=== PATIENT | male | born 1950 | race Caucasian/White ===

== ENCOUNTER 2017-02-11 08:00 | Outpatient (RCR) | payer OTHER ==
[2017-02-06 14:29] LABS: PLATELET COUNT, AUTOMATED 253 K/uL (150-450)
[~2017-02-11 08:00] MED LIST: ASPI-1471 PO; AZIT-1 PO; CEP500 PO; DILT180C2 PO; GLUC100026 PO; IOPAMIDOL 76% 75 ML INFUS BTL 75 ML ONE; METH4TAB66 PO; MULT1TAB54 PO; NS 0.9% 50 ML VIAL 50 ML ONE; OXYC-823 PO
--- NOTE | 2017-02-11 08:30 | RADIOLOGY IMAGING REPORT ---
FACILITY: [facility] - [place] PATIENT NAME: Brett Lambert : 1950 MR: [id number] V: [id number] EXAM DATE: ORDERING PHYSICIAN: AMANDO HINES TECHNOLOGIST: [place] [facility] [place] Patient: Brett Lambert : 1950 Visit/Account:[id number] Date of Sevice: 02/11/2017 CHEST PA AND LAT Provided history: Prostate carcinoma. No chest complaints currently. Additional pertinent history: none COMPARISON STUDIES: 06/24/16 FINDINGS: Support lines and tubes: None. Lungs / pleura / dianna: There are increased linear markings in both mid and lower lungs extend to the lateral pleural margin. These are less prominent compared to prior but coarse markings persist sugg esting component of chronic interstitial lung disease. This is confirmed on review of CT chest 12/23. There is no acute airspace disease. No pleural fluid. Heart / mediastinum /vessels: Negative Nodules / masses: None significant Bones / body wall: There are remodeling fractures of posterior right ribs 7 and 8, new from previous chest x-ray, also shown interim CT 12/23/16. No lytic or blastic bone lesion. Lower neck / Upper abdomen: Negative IMPRESSION: 1. No evidence of metastatic disease to the chest. 2. Chronic interstitial lung disease. Interim resolution of an acute component of prior. 3. Benign-appearing remodeling right posterior rib fractures. Report Dictated By: Jake Lara MD at 02/11/2017 8:22 AM Report E-Signed By: Jake Lara MD at 02/11/2017 8:27 AM WSN:[id number]
--- NOTE | 2017-02-11 08:49 | RADIOLOGY IMAGING REPORT ---
FACILITY: [facility] - [place] PATIENT NAME: Brett Lambert : 1950 MR: [id number] V: [id number] EXAM DATE: ORDERING PHYSICIAN: AMANDO HINES TECHNOLOGIST: Location: [facility] Patient: Brett Lambert : 1950 Visit/Account:[id number] Date of Sevice: 02/11/2017 ABDOMEN/PELVIS W/WO CONTRAST HISTORY: Prostate cancer. TECHNIQUE: CT abdomen and pelvis without and with intravenous contrast. One of the following dose optimization techniques was utilized in the performance of this exam: Autom ated exposure control; adjustment of the mA and/or kV according to the patient's size; or use of an i terative reconstruction technique. Specific details can be referenced in the facility's radiology C T exam operational policy. CONTRAST: 75 mL Isovue-370. COMPARISON: CT chest dated December 23, 2016. FINDINGS: Visualized lung bases: Peripheral subpleural reticulation within the lung bases may be related to in terstitial lung disease. Hepatobiliary: Negative. Spleen: Negative. Adrenals: Negative. Pancreas: Negative. Kidneys/: Prostate is normal in size measuring up to 4.4 cm in transverse diameter. There is mild central BPH There is heterogeneity within the left aspect of the prostate, possibly representing sit e of known prostate cancer. There is no gross extraprostatic extension. GI: Advanced descending and sigmoid colon diverticulosis without evidence for diverticulitis. Other bill negative. Vessels/spaces/nodes: No visualized lymphadenopathy. Moderate to advanced atherosclerosis within th e abdominal aorta and proximal iliac arteries. Bones/soft tissues: No metastatic bone lesions identified. Multilevel degenerative changes within t he lumbar spine. IMPRESSION: 1. Heterogeneity within the left aspect of the prostate, which may be related to known prostate canc er. There is no evidence for local extraprostatic extension or metastatic disease. 2. Incidental/chronic findings, as above. Report Dictated By: Issa Green MD at 02/11/2017 8:39 AM Report E-Signed By: Issa Green MD at 02/11/2017 8:45 AM WSN:[id number]
--- NOTE | 2017-02-11 13:36 | RADIOLOGY IMAGING REPORT ---
FACILITY: [facility] - [place] PATIENT NAME: Brett Lambert : 1950 MR: [id number] V: [id number] EXAM DATE: ORDERING PHYSICIAN: AMANDO HINES TECHNOLOGIST: Location: [facility] - [place] Patient: Brett Lambert : 1950 Visit/Account:[id number] Date of Sevice: 02/11/2017 WHOLE BODY BONE SCAN HISTORY: Prostate cancer ADDITIONAL HISTORY: None. TECHNIQUE: 28.5 mCi technetium 99m MDP was injected intravenously. Delayed anterior and posterior wh ole body gamma camera images were obtained. Additional gamma camera images: None. COMPARISON: Chest CT 12/23/2016 and abdomen/pelvis CT 02/11/2017 FINDINGS: Bone radiotracer activity: There is a focus of high activity seen in the right posterior seventh and eighth ribs which corresponds to rib fractures seen on the preceding CT scan. There is also a small focus of activity seen in the right posterior third rib. I do not, however, this see evidence of frac ture or lesion within the right posterior third rib on the corresponding CT scan. There is diffuse wa rm activity lower cervical spine which is likely degenerative as the C7 vertebral body partially capt ured within the field of view of the chest CT demonstrates demonstrable degenerative change. There is also warm activity seen in the right lateral fifth lumbar vertebral body which corresponds t o an area of extensive degenerative changes seen of the preceding CT. Minimal activity noted in the l eft elbow joint and right midfoot is likely arthropathic in nature. Extraosseous radiotracer activity: Unremarkable. Renal and urinary collecting system activity: Unremarkable. IMPRESSION: Single focus of activity in the right posterior third rib unexplained by fracture. Since there are fr actures seen in several additional more inferior right ribs and in the absence of other worrisome fin dings I believe it is unlikely to represent a solitary metastatic focus although this possibility can not BE entirely excluded. No other findings concerning for radiotracer avid osseous metastasis. Spondylitic changes in the cervical and lower lumbar spine and degenerative changes in the left elbow and right foot Report Dictated By: Romulo Brower MD at 02/11/2017 1:22 PM Report E-Signed By: Romulo Brower MD at 02/11/2017 1:32 PM WSN:[id number]
== END 2017-02-11 18:00 | disposition home or self-care (01) ==
LOC: NUC 08:00
PROVIDERS: ATTEND Urology
DX: C61 Malignant neoplasm of prostate (principal)
CPT/HCPCS: 36415; 71046; 74178; 78306; 82040; 82247; 82248; 82310; 82374; 82435; 82565; 82947; 84075; 84132; 84155; 84295; 84450; 84460; 84520; 85025; A9503; J7050; Q9967

== ENCOUNTER 2017-04-13 03:19 | Day surgery (SDC) | payer OTHER, MEDICARE ==
--- NOTE | 2017-04-10 14:22 | HISTORY AND PHYSICAL ---
DATE OF ADMISSION: April 13, 2017 CHIEF COMPLAINT Prostate cancer. HISTORY OF PRESENT ILLNESS The patient is a 66-year-old white male who is referred to the Urology Clinic from the [facility] after noting the patient to have an elevated PSA which was increasing. He was originally seen in the Urology Clinic on December 12, 2016. At that time, he had a urinalysis which was normal. Digital rectal exam revealed induration of the right prostate. His PSA was repeated which returned 11.8. He prior had a PSA of 9.8 in August 2016 and 6.3 in February 2016. The patient underwent a transrectal ultrasound biopsy in the clinic on the 31 of December. At that time, he was noted to have a 22 mL volume prostate. His pathology returned positive for adenocarcinoma in 10 of the 12 cores with the maximum core of 50% and a maximum [place] grade of 3 + 4 = 7. His metastatic evaluation was normal with a CT scan, chest x-ray, laboratory, and bone scan. He sought evaluation and consult with Radiation Oncology. He saw Dr. Coreas and elected to undergo combination external beam radiation and brachytherapy. She felt he was not a candidate for adjuvant antigen deprivation secondary to his questionable cardiac status. The patient has completed his radiation treatment. He is now being brought to the operating room for planned transrectal ultrasound step-section mapping in anticipation for brachytherapy planning. PAST MEDICAL HISTORY 1. COPD. 2. Hypertension. 3. Degenerative joint disease. 4. History of atrial flutter. PAST SURGICAL HISTORY 1. Thyroidectomy. 2. Cardiac ablation in 2016 for atrial flutter. 3. Lumbar spine surgery. CURRENT MEDICATIONS 1. Ventolin. 2. Symbicort. 3. Aspirin. 4. Diltiazem. 5. Multivitamins. ALLERGIES He is allergic to NAPROXEN. FAMILY HISTORY Noncontributory. He has no history of familial prostate cancer or breast cancer. REVIEW OF SYSTEMS The patient denies productive cough, shortness of breath, nausea, vomiting, fever, chills, gross hematuria, change in weight, bony pain, or a bleeding disorder. PHYSICAL EXAMINATION GENERAL: The patient is a well-developed, well-nourished white male in no acute distress. HEENT: Normocephalic, atraumatic. CHEST: Clear to auscultation bilaterally. CARDIOVASCULAR: Regular rate and rhythm. ABDOMEN: Soft, nontender. No masses are palpated. GENITOURINARY: Deferred to the OR. EXTREMITIES: Without clubbing, cyanosis, or edema. NEUROLOGIC: Nonfocal. IMPRESSION A 66-year-old white male with a TGB, high volume, 3 + 4 = 7 adenocarcinoma of the prostate, status post external beam radiation, now for planning of brachytherapy. PLAN We will perform transrectal ultrasound step-section mapping of prostate. [facility]
[~2017-04-13] VITALS: Ht 177.8 cm; Wt 70.8 kg
[~2017-04-13 03:19] MED LIST changes: +ALB18R INH; +BUDE10.2 INH; -IOPAMIDOL 76% 75 ML INFUS BTL 75 ML ONE; -NS 0.9% 50 ML VIAL 50 ML ONE
[2017-04-13 06:26] VITALS: BP 153/89
[2017-04-13] MEDS ORDERED: FAMOTIDINE 20 MG TAB PO ONE (06:30)
[2017-04-13] MEDS ORDERED: LIDOCAINE/SOD BICARB 8.4% SYR ID ONE (06:30)
[2017-04-13] MEDS ORDERED: NORMOSOL R SOLN(*) 1000 ML BAG 1,000 ML IV PRN (06:30)
[2017-04-13] MEDS ORDERED: MIDAZOLAM 2 MG/2 ML VIAL IVP ONE (06:30)
[2017-04-13] MEDS ORDERED: ceFAZolin(*) 1 GM VIAL 1 GM in NS(*) 0.9% 100 ML ADDVANT BAG 100 ML IV ONE (06:30)
[2017-04-13] MEDS ORDERED: fentaNYL CITR 100 MCG/2 ML AMP ONE (07:07)
[2017-04-13] MEDS ORDERED: LIDOCAINE MPF 1% 5 ML VIAL ONE (07:08)
[2017-04-13] MEDS ORDERED: DEXAMETHASONE SOD 4 MG/ML VIAL ONE (07:08)
[2017-04-13] MEDS ORDERED: ONDANSETRON 4 MG/2 ML VIAL ONE (07:08)
[2017-04-13] MEDS ORDERED: PROPOFOL EMUL(*) 10MG/ML 20 ML 20 ML ONE (07:08)
[2017-04-13] MEDS ORDERED: LIDOCAINE 2% JELLY 5 ML TUBE ONE (07:10)
[2017-04-13 08:45] VITALS: BP 134/91
[2017-04-13 08:53] VITALS: BP 135/87
[2017-04-13 08:54] VITALS: BP 145/82
--- NOTE | 2017-04-13 11:18 | OPERATIVE REPORT 1 ---
EVENT DATE: April 13, 2017 SURGEON: Jarad Addison MD ANESTHESIOLOGIST: Wayne Higginbotham MD ANESTHESIA: General PREOPERATIVE DIAGNOSIS Prostate cancer. POSTOPERATIVE DIAGNOSIS Prostate cancer. PROCEDURE PERFORMED Transrectal ultrasound step section mapping of prostate for planned brachytherapy. ESTIMATED BLOOD LOSS Minimal. IV FLUIDS Crystalloids. DRAINS None. COMPLICATIONS None. CONDITION Patient taken to recovery room awake and in stable condition. STATEMENT OF MEDICAL NECESSITY Patient is a 66-year-old white male who was noted to have an elevated PSA and abnormal digital rectal exam who underwent biopsy in the urology clinic and was found to have a large volume 3+4=7 adenocarcinoma of his prostate. He has elected to undergo combination external beam radiation and brachytherapy treatment under the direction of Dr. Coreas. He has completed his external beam radiation and is now being brought to the operating room for planned transrectal ultrasound, step section mapping of prostate in anticipation of brachytherapy planning. DESCRIPTION OF PROCEDURE PERFORMED Patient was brought to the operating room, and after general anesthetic was obtained, he was placed in the dorsal lithotomy position using the Yellofin stirrups. A small roll was placed under his buttocks to tilt his pelvis slightly upward. A Feldman catheter was placed sterilely. The ultrasound stabilizer was placed at the end of the table, and the BK ultrasound probe placed in the cradle of the stabilizer. The patients rectum was filled with transducer jelly. The ultrasound probe was introduced atraumatically, and the offset balloon was inflated. Real time ultrasound of the prostate was performed. The 5 mm grid system was engaged on the screen, as well as set on the step stabilizer. A volumetric plane imagery was performed, starting at the base and proceeding out to the apex. At each step section, the outline of the prostate was marked with the cursor to calculate the area. A total of 5 cuts were performed from the base of the apex to give a volume of 16 mL. Following this, the transducer was switched perpendicularly to the sagittal plane, and the length was measured from the base to the apex at 39 mm. At this point, the offset balloon was deflated, the ultrasound probe was removed, and the patient was taken down from dorsal lithotomy position. His Feldman catheter was removed. He was awakened in the operating room and taken to the recovery area in stable condition. The plan will be to allow the patient to be discharged home today. He will return to the operating room in approximately 2-4 weeks for planned brachytherapy treatment under the direction of Dr. Coreas. DESTINI
== END 2017-04-13 08:46 | disposition home or self-care (01) ==
LOC: OR 03:19
PROVIDERS: ATTEND Urology
DX: C61 Malignant neoplasm of prostate (principal)
CPT/HCPCS: 36415; 76873; 81001; 84153; 87088; J0690; J1100; J2001; J2405; J2704; J3010; J7050

== ENCOUNTER 2017-05-19 11:25 | Outpatient (RCR) | payer MEDICARE, OTHER ==
[2017-05-19 11:34] VITALS: BP 160/99
[2017-05-19 11:45] LABS: PLATELET COUNT, AUTOMATED 273 K/uL (150-450)
[2017-05-21] MEDS ORDERED: ceFAZolin(*) 1 GM VIAL 1 GM in NS(*) 0.9% 100 ML ADDVANT BAG 100 ML IVPB ONE (09:00)
[2017-05-21] MEDS ORDERED: PHEN200T32 PO (11:02)
[2017-05-21] MEDS ORDERED: CIPR-214 PO (11:03)
[2017-05-21] MEDS ORDERED: TAMS0.4C25 PO (11:04)
== END 2017-05-24 ==
LOC: SPU 11:25
PROVIDERS: ATTEND Radiology Radiation Oncology
DX: Z51.0 Encounter for antineoplastic radiation therapy (principal); C61 Malignant neoplasm of prostate; J44.9 Chronic obstructive pulmonary disease, unspecified; Z79.82 Long term (current) use of aspirin; Z79.899 Other long term (current) drug therapy
CPT/HCPCS: 36415; 77280; 77290; 77295; 77300; 77301; 77332; 77336; 77338; 77370; 77385; 77470; 81001; 82040; 82247; 82310; 82374; 82435; 82565; 82947; 84075; 84132; 84153; 84155; 84295; 84450; 84460; 84520; 85025; 99202; 99213

== ENCOUNTER 2017-05-21 03:52 | Day surgery (SDC) | payer MEDICARE, OTHER ==
--- NOTE | 2017-05-19 15:58 | HISTORY AND PHYSICAL ---
DATE OF ADMISSION: May 21, 2017 REASON FOR ADMISSION Patient is scheduled Palladium-103 brachytherapy for recently diagnosed prostate carcinoma. Procedure will be performed by Dr. Coreas and Dr. Addison. HISTORY OF PRESENT ILLNESS This is a 66-year-old gentleman who underwent a prostate biopsy on December 31, [address] Addison. He was found to have high-volume [place] 3+4=7 malignancy occupying 10 of 12 core biopsies. The prostate volume was small at 22 cc. Staging workup revealed no evidence of lymphadenopathy or metastatic disease. Patient was advised to undergo external beam radiotherapy and prostate brachytherapy boost. Patient has received external beam radiotherapy to 5040 cGy in 28 fractions. Treatment started March 16, 2017 and completed April 22, 2017. Patient states that his voiding function is presently stable. Denies any dysuria. No bowel complaints or persistent bone pain at this time. No recent infections. MEDICATIONS 1. Diltiazem 180 mg ER q.day. 2. Aspirin 81 mg q.day (on hold). 3. MVI. 4. ProAir HFA two inhalations q.6 hours p.r.n. 5. Symbicort 80-4.5 mcg inhalation b.i.d. 6. Pantoprazole. ALLERGIES Intolerance to NAPROXEN. PAST MEDICAL HISTORY * Atrial flutter. * Hypertension. * COPD. * Degenerative arthritis. * Prostate carcinoma. FAMILY HISTORY Notable for a father who had lung cancer at age 46, a brother had lung cancer at age 71, a brother experienced unknown type of cancer at age 62. PAST SURGICAL HISTORY * Ultrasound-guided biopsy of the prostate on December 31, 2016. * Prior cardiac ablation for atrial flutter. * Prior laminectomy. * Prior partial thyroidectomy in 1979. * SOCIAL HISTORY Patient is , five children. His 's name is Jillian. He is retired. Previously a [employer] for [employer] for 25 years. Presently under [place] [facility] care. Previous history of tobacco use. REVIEW OF SYSTEMS Fourteen point review of systems. Denies any progressive weight loss. He does have shortness of breath with moderate exertion. He utilizes oxygen at 3L by nasal cannula at night. Denies any chest pain or palpitations. No GI complaints at this time. Does have some arthritic stiffness in his joints at times. PHYSICAL EXAMINATION GENERAL: A pleasant 66-year-old male of thin build. VITAL SIGNS: Listed in EMR. LYMPH NODES: No peripheral lymphadenopathy. LUNGS: Clear with no rales or wheezes. HEART: Sounds were regular. ABDOMEN: Soft. No gross organomegaly. RECTAL: Exam is deferred. EXTREMITIES: Reveal no edema or cyanosis. NEUROLOGIC: Exam is grossly intact. IMPRESSION A 66-year-old gentleman with recently diagnosed [id number] risk prostate carcinoma. He successfully completed external beam radiotherapy to the prostate, seminal vesicals and appropriate margin on the gland. PLAN Patient is now admitted for Palladium-103 seed brachytherapy for the boost phase. Potential acute late side effects and therapeutic alternatives were reviewed in detail with the patient and his spouse in the office today. Signed consent was obtained. All questions were answered to his satisfaction and preoperative instructions were reviewed. Procedure will be performed by my partner, Dr. Coreas, on of this week, in conjunction with Dr. Addison. DESTINI
[~2017-05-21] VITALS: Ht 180.3 cm; Wt 69.4 kg
[2017-05-21] MEDS ORDERED: IOTHALAMATE MEGLU 172MG/ML BTL 250 ML IVPB ONE (07:20)
[2017-05-21 08:28] VITALS: BP 140/89
[2017-05-21] MEDS ORDERED: ONDANSETRON 4 MG/2 ML VIAL ONE (08:29)
[2017-05-21] MEDS ORDERED: PROPOFOL EMUL(*) 10MG/ML 20 ML 20 ML ONE (08:29)
[2017-05-21] MEDS ORDERED: fentaNYL CITR 100 MCG/2 ML AMP ONE (08:29)
[2017-05-21] MEDS ORDERED: LIDOCAINE MPF 1% 5 ML VIAL ONE (08:29)
[2017-05-21] MEDS ORDERED: DEXAMETHASONE SOD 4 MG/ML VIAL ONE (08:29)
[2017-05-21] MEDS ORDERED: KETAMINE HCL 200 MG/20 ML MDV ONE (08:43)
[2017-05-21] MEDS ORDERED: FAMOTIDINE 20 MG TAB PO ONE (09:00)
[2017-05-21] MEDS ORDERED: NORMOSOL R SOLN(*) 1000 ML BAG 1,000 ML IV PRN (09:00)
[2017-05-21] MEDS ORDERED: ceFAZolin(*) 1 GM VIAL 1 GM in NS(*) 0.9% 100 ML ADDVANT BAG 100 ML IVPB ONE (09:00)
[2017-05-21] MEDS ORDERED: LIDOCAINE/SOD BICARB 8.4% SYR ID ONE (09:00)
[2017-05-21] MEDS ORDERED: MIDAZOLAM 2 MG/2 ML VIAL IVP PRN (09:00)
[2017-05-21] MEDS ORDERED: PHEN200T32 PO (11:02)
[2017-05-21] MEDS ORDERED: CIPR-214 PO (11:03)
[2017-05-21] MEDS ORDERED: TAMS0.4C25 PO (11:04)
[2017-05-21 12:05] VITALS: BP 130/87
[2017-05-21 12:07] VITALS: BP 123/75
--- NOTE | 2017-05-21 15:18 | RADIOLOGY IMAGING REPORT ---
FACILITY: [facility] - [place] PATIENT NAME: Brett Lambert : 1950 MR: [id number] V: [id number] EXAM DATE: ORDERING PHYSICIAN: AMANDO HINES TECHNOLOGIST: Location: [facility] - [place] Patient: Brett Lambert : 1950 Visit/Account:[id number] Date of Sevice: 05/21/2017 C-ARM FLUORO 1 HR Indication: PROSTATE SEEDING Comparison: None. Radiation dose: DAP 0.47037 mGym2; Findings: Intraprocedure images are obtained, which demonstrate multiple brachytherapy seeds placed i n the prostate. IMPRESSION: Images from a procedure for placement of brachytherapy seeds. Report Dictated By: Franklin Neves at 05/21/2017 3:12 PM Report E-Signed By: Franklin Neves at 05/21/2017 3:14 PM WSN:[id number]
--- NOTE | 2017-05-21 19:38 | OPERATIVE REPORT 1 ---
EVENT DATE: May 21, 2017 SURGEON: Jarad Addison MD ANESTHESIOLOGIST: Clifton Wren MD ANESTHESIA: General anesthetic. AGENT LICENSING CLERK: Kavita Coreas MD PREOPERATIVE DIAGNOSIS Prostate cancer. POSTOPERATIVE DIAGNOSIS Prostate cancer. PROCEDURES PERFORMED 1. Transrectal ultrasound of prostate. 2. Transrectal ultrasound-guided transperineal prostate needle placement for brachytherapy. 3. Flexible cystoscopy. ESTIMATED BLOOD LOSS 10 mL INTRAVENOUS FLUIDS Crystalloids. DRAINS 16-Citizen [place] coude Feldman catheter. PATHOLOGY None. COMPLICATIONS None. CONDITION Patient taken to the recovery room awake and in stable condition. STATEMENT OF MEDICAL NECESSITY Patient is a 66-year-old white male who has had high-volume prostate cancer who has elected to undergo combination radiation treatment under direction of Dr. Coreas. He has completed external beam radiation. He is now being brought to the operating room for planned brachytherapy boost treatment. Specific risks and benefits of this procedure were extensively discussed by Dr. Coreas, and operative consent is signed and on the chart. DESCRIPTION OF OPERATION PERFORMED Patient was brought to the operating room. After general anesthetic was obtained, he was placed in the dorsal lithotomy position using the Yellofin stirrups with a small roll placed under his pelvis to tilt his pelvis slightly upward. His position was reproduced from that of his mapping procedure. At this point, he was prepped and draped sterilely. A 16-Citizen [place] coude Feldman catheter was placed in his bladder with dilute contrast instilled into the catheter, and then the catheter was plugged. A scrotal stay stitch was placed, providing exposure to the perineum. The patient's rectum was filled with the transducer jelly. The stabilizer was placed at the end of the table and the ultrasound probe placed in the cradle of the stabilizer. It was then introduced into the patient's rectum atraumatically, and the offset balloon was inflated. Real-time transrectal ultrasound of the prostate was performed. The 5 mm grid system was used. Both the apex and base of the prostate were marked with fluoroscopic imaging to aid in needle placement and orientation. The ultrasound probe was placed at the mid prostate. I then placed a total of 21 needles transperineal under ultrasound guidance into the prostate using the preplanned urethra-sparing technique under the direction of Dr. Coreas. After I placed the needles, she removed the needles and placed a total of 61 seeds. After this was done, the Feldman catheter was removed along with the scrotal stay stitch. I performed a flexible cystoscopy which revealed a normal pendulous bulbar and membranous prostatic urethra. The bladder also appeared normal with 1+ trabeculation. There were no foreign bodies or bleeding noted. The cystoscope was then removed and a 16-Citizen [place] coude Feldman catheter placed with 10 mL of water in the balloon. The offset balloon was then inflated and the ultrasound probe removed from the patient's rectum atraumatically. He was taken down from dorsal lithotomy position and then awakened in the operating room and taken to the recovery area in stable condition. PLAN We will allow the patient to be discharged home today. He is going to see Dr. Coreas in approximately two to three months and return to the Urology Clinic in approximately six months with a PSA for followup. DESTINI
--- NOTE | 2017-05-21 19:59 | OPERATIVE REPORT 1 ---
EVENT DATE: May 21, 2017 SURGEON: Kavita Coreas MD ANESTHESIOLOGIST: Clifton Wren MD ANESTHESIA: General. PROCEDURE PERFORMED Placement of palladium one of three seeds for prostate brachytherapy boost. PREOPERATIVE DIAGNOSIS High intermediate risk prostate cancer, presenting with [place] 3 + 4 = 7 disease in 10/12 core biopsies, PSA 11.8. He has undergone initial external beam radiotherapy to the pelvis. He presents today for prostate boost. POSTOPERATIVE DIAGNOSIS High intermediate risk prostate cancer, presenting with [place] 3 + 4 = 7 disease in 10/12 core biopsies, PSA 11.8. He has undergone initial external beam radiotherapy to the pelvis. He presents today for prostate boost. BLOOD LOSS Minimal. COMPLICATIONS None. HISTORY OF PRESENT ILLNESS Mr. Brett Lambert is a gentleman who was noted to have an increased PSA of 11.8. He underwent prostate biopsy on December 31, 2016, under the direction of Dr. Addison. Pathology showed highest [place] grade of 3 + 4 = 7 involving 10 /12 core biopsies. Prostate volume was noted to be 22 mL. Patient has previously presented to discuss treatment options with myself and Dr. Addison. The patient has elected to undergo external beam radiotherapy in conjunction with a prostate seed implant boost. The patient was apprised of all radiation safety protocols as well as the side effects of the procedure. Patient signed informed consent today. He presents for this procedure. DESCRIPTION OF PROCEDURE Mr. Labmert was placed in the dorsal lithotomy position. He was prepped and draped appropriately. A Feldman catheter was inserted into the urethra. The prostate gland was visualized under ultrasound and fluoroscopic guidance. Dr. Addison placed the needles appropriately under ultrasound and fluoroscopic guidance. A total of 21 needles were placed with a total of 61 radioactive seeds placed. Following the completion of the placement of the radioactive seeds, Dr. Addison performed a cystoscopy. No abnormalities were noted in the bladder. The patient was transferred to the postoperative unit in stable condition. He will follow up with radiation oncology in one month as scheduled. Of course, he knows to contact us at any time in the interim with any additional questions or concerns. DESTINI
== END 2017-05-21 12:00 | disposition home or self-care (01) ==
LOC: OR 03:52
PROVIDERS: ATTEND Radiology Radiation Oncology
DX: C61 Malignant neoplasm of prostate (principal)
CPT/HCPCS: 55876; 76000; 94667; C2640; J0690; J1100; J2001; J2405; J2704; J3010; J3490; J7050; Q9958

== ENCOUNTER 2017-06-16 12:55 | Outpatient (RCR) | payer OTHER ==
[~2017-06-16 12:55] MED LIST changes: +CIPR-214 PO; +PHEN200T32 PO; +TAMS0.4C25 PO
[2017-06-17] MEDS ORDERED: NYST100016 ASDIRECTED (14:01)
[2017-06-17] MEDS ORDERED: AMOX-362 PO (14:02)
== END 2017-09-13 ==
LOC: RAON 12:55
PROVIDERS: ATTEND Radiology Radiation Oncology
DX: C61 Malignant neoplasm of prostate (principal); Z92.3 Personal history of irradiation; J44.9 Chronic obstructive pulmonary disease, unspecified; Z79.899 Other long term (current) drug therapy; Z79.82 Long term (current) use of aspirin; Z87.891 Personal history of nicotine dependence
CPT/HCPCS: 77295; 77332; 77370; 99212

== ENCOUNTER 2017-09-23 12:47 | Outpatient (RCR) | payer OTHER ==
[~2017-09-23 12:47] MED LIST changes: +AMOX-362 PO; +NYST100016 ASDIRECTED
[2017-09-23] MEDS ORDERED: ACET500T68 PO (15:54)
== END 2017-10-09 10:01 | disposition home or self-care (01) ==
LOC: RAON 12:47
PROVIDERS: ATTEND Radiology Radiation Oncology
DX: C61 Malignant neoplasm of prostate (principal); Z92.3 Personal history of irradiation; J44.9 Chronic obstructive pulmonary disease, unspecified; Z79.899 Other long term (current) drug therapy; Z79.82 Long term (current) use of aspirin; Z87.891 Personal history of nicotine dependence
CPT/HCPCS: 36415; 84153; 99212

== ENCOUNTER 2018-03-16 12:46 | Outpatient (RCR) | payer OTHER ==
[2018-03-09 08:59] VITALS: BP 138/78
[~2018-03-16 12:46] MED LIST changes: +ACET500T68 PO
[2018-03-16] MEDS ORDERED: PRED-317 PO (13:01)
[2018-03-16] MEDS ORDERED: ETAN50DI5 SQ (14:59)
--- NOTE | 2018-03-16 20:36 | ONCOLOGY FOLLOW UP NOTE ---
EVENT DATE: March 16, 2018 REASON FOR VISIT Prostate carcinoma. Patient treated with external beam radiotherapy and prostate brachytherapy boost in 2018. Reassess PSA response. HISTORY 1. Initial diagnosis of prostate carcinoma involving 10 of 12 core biopsies. Tumor was Davide 6 and Davide 7. Core biopsies positive up to 50%. Pretreatment PSA 11.8 ng/mL. 2. Initial therapy was external beam radiotherapy to 5040 cGy in 28 fractions, completed 04/22/17. This was followed by prostate brachytherapy, completed 05/21/17. INTERVAL HISTORY Mr. Lambert was seen accompanied by his for a followup appointment. Overall, he is doing exceptionally well. He denies any significant voiding issues. He has baseline nocturia times two. Reasonably good stream. No dysuria. No bowel complaints. PSA has progressively fallen since treatment. His PSA had dropped from 11 to 3.3 by September 2017. The new PSA on 03/09/18 is down to 1.4 ng/mL. Since the patient's last visit here, he has been diagnosed with rheumatoid arthritis and now sees a ID product marketing intern (Dr. April Flores) in [place] every two to three months. He is on Enbrel and low-dose prednisone. He appears to be responding. This was started four weeks ago. MEDICATIONS 1. Albuterol inhaler. 2. Symbicort 160/4.5 two puffs q. day. 3. MVI. 4. Aspirin 81 mg a day. 5. Diltiazem 180 mg a day. 6. Enbrel one injection per week. 7. Prednisone 5 mg a day. ALLERGIES Intolerance to NAPROXEN. PAST MEDICAL HISTORY 1. Prostate carcinoma. 2. COPD. 3. Rheumatoid arthritis. 4. Osteoarthritis. SURGICAL HISTORY 1. Previous ultrasound biopsy of the prostate 12/31/16. 2. Cardiac ablation for atrial flutter. 3. Laminectomy. 4. Previous partial thyroidectomy in 1979. SOCIAL HISTORY Patient is a former smoker. He does drink alcohol at night. He is accompanied by his , Jillian. They have five children. [employer]. Very active. COMPREHENSIVE REVIEW OF SYSTEMS Essential negative with exception of the muscle and joint pain from rheumatoid arthritis. Initially had swelling in his ankles which is now resolved. He uses oxygen 2.5L at night. No GI complaints. No chest pain or cardiac complaints. PHYSICAL EXAMINATION GENERAL: Pleasant 67-year-old gentleman of medium to thin build. VITAL SIGNS: Weight 163. BP 129/78, pulse 81, respirations 16, oxygen 90% on 2.5L. LUNGS: Clear bilaterally today. HEART: Sounds regular. ABDOMEN: Soft with no gross organomegaly. RECTAL: Deferred due to decreased PSA. EXTREMITIES: No significant edema or swelling today. IMPRESSION Excellent therapeutic response to combination of external beam radiotherapy and prostate brachytherapy with normalization of the PSA. PLAN [facility] per [facility]. I would like him to have a PSA at six months and at 12 months. That could be drawn locally. I would like to see him at the 12-month interval. He is presently seeing THIERRY Velasquez, for primary medical care. All questions were answered to his satisfaction, and I am pleased with his course to date. DESTINI
== END 2018-03-29 11:45 | disposition home or self-care (01) ==
LOC: RAON 12:46
PROVIDERS: ATTEND Radiology Radiation Oncology
DX: C61 Malignant neoplasm of prostate (principal); Z92.3 Personal history of irradiation; J44.9 Chronic obstructive pulmonary disease, unspecified; Z79.899 Other long term (current) drug therapy; Z79.82 Long term (current) use of aspirin; Z87.891 Personal history of nicotine dependence; M06.9 Rheumatoid arthritis, unspecified
CPT/HCPCS: 36415; 84153; 99212